=== PATIENT | male | born 2000 | race Caucasian/White ===

== ENCOUNTER 2023-06-22 07:00 | Outpatient (RCR) | payer BC, SELFPAY ==
--- NOTE | 2023-06-03 11:00 | MHC.OT.EP ---
[address] [phone] Occupational Therapy Plan of Care Patient Name: Sivakumar Quiroga Date of Evaluation: 06/03/23 Diagnosis: B/L hand pain Pain Location: Pain free at rest 8/10 sharp pain w/ heavy gripping Pain Score: 8 Pain Scale Used: Numeric (0 - 10) Aggravating Factors: Heavy gripping, tight fist Alleviating Factors: Hot water (showers) Assessment: 22 yo male reports progressing pain in both hands for the past few years. He has family hx of arthritis and Dad (50 years) w/ IP deformities. He was seen by PCP and referred to OT for further assessment and management. On assessment, he reports tightness in IPs and has limited gross grasp B/L'ly, right worse than left. He is also observed to have stage 2 triggering in left index and long fingers and right index finger. He has been educated on use of Oval 8 orthoses to immobilize IPs for trigger fingers and use ice massage and rest. He has also been educated on general joint protection for reducing stress on joint while progressing passive stretching to improve range. I anticipate he will do well w/ course of therapy to improve finger range and minimize/eliminate trigger fingers, with ultimate goal of self management and knowledge of minimizing progression of arthritis and maintaining optimal use of hands. Frequency and Duration: The patient will be seen 2/xwk for 4 weeks Short Term Goals: Ind w/ Oval 8 orthosis wear Ind w/ use of ice massage for trigger fingers Pt to demo good passive digit tip-palm stretch w/ ease Vp Research Goals: Pt to demo active tip-palm grasp B/L hands Pt to report trigger free digits w/ light bimanual tasks Pt to report good follow through w/ joint protection techniques during work tasks Treatment Plan: Therapeutic Exercise Therapeutic Activity Home Exercise Program Splinting Patient Education Edema Control ADL Training Ultrasound Paraffin Fluidotherapy MHP Cold Packs Joint Mobilization Soft Tissue Mobilization Kinesiotaping Electronically Signed By: Alfreda Atkinson OTR/L CHT Please Sign and return to therapist. Thank you once again for your referral.
--- NOTE | 2023-06-22 08:38 | MHC.OT.DC ---
[address] [phone] F: [phone] Occupational Therapy Discharge Note Patient Name: Sivakumar Quiroga Provider: Chase Fields PA-C Diagnosis: B/L hand pain Date of Evaluation: 06/03/23 Date of Discharge: 06/22/23 Treatments to Date: 3 No Shows to Date: 2 Discharge Status: Independent with HEP Recommend MD Follow-up Discharge Summary: Sivakumar was seen for OT with B/L hand pain and stiffness, noted to also have active triggering of several digits. He has had good follow through w/ use of massage and ice for trigger fingers and passive digit stretching to maintain range of hand, but still painful joints w/ decreased digit flexion, and active triggering of multiple digits. He has good understanding of basic self management skills, but symptoms continue to progress and at this time he would likely benefit from Rheumatology assessment and possible field support specialist to address multiple issues. Electronically Signed By: Alfreda Atkinson, OTR/L CHT Please Sign and return to therapist, thank you for your referral.
== END 2023-06-22 08:39 | disposition home or self-care (01) ==
LOC: HO.OT 07:00
PROVIDERS: PCP Physician Assistant; Visit Provider Physician Assistant
DX: M79.641 Pain in right hand (principal); M79.642 Pain in left hand
CPT/HCPCS: 97035; 97110; 97140; 97166

== ENCOUNTER 2023-09-25 16:25 | Emergency (ER) | payer BC, SELFPAY ==
--- NOTE | ~2023-09-25 | XR_ITS ---
EXAMINATION: XR ANKLE, RIGHT CLINICAL INFORMATION: Pain status-post fall. COMPARISON: None available. TECHNIQUE: AP, lateral, and mortise views of the right ankle. FINDINGS: Bony alignment and mineralization are normal. The ankle mortise is intact. No fracture, dislocation or right joint effusion is seen. Boehler's angle is normal. No calcaneal spur is seen. There is mild soft tissue swelling adjacent to the lateral malleolus. XR/XR ankle RT min 3V IMPRESSION: 1. No fracture, dislocation or right ankle joint effusion is seen. 2. There is mild soft tissue swelling adjacent to the right lateral malleolus.
[2023-09-25 16:27] VITALS: BP 138/73; PULSE 72; RESP 16; TEMP 36.8; O2SAT 99; BMI 26.9
--- NOTE | 2023-09-25 16:28 | ED_ITS ---
HPI - Extremity Injury (Lower) General Chief Complaint: Extremity Injury, Lower Stated Complaint: right ankle inj Time Seen by Provider: 09/25/23 16:38 Source: patient Mode of arrival: ambulatory Limitations: no limitations History of Present Illness HPI Narrative: Patient is a 23-year-old male who presents emergency department for evaluation of traumatic right ankle pain, rolled it while playing basketball, 1hr [employer]. Related Data Allergies Allergy/AdvReac Type Severity Reaction Status Date / Time No Known Allergies Allergy Verified 09/25/23 16:28 Review of Systems Review of Systems: Yes all other systems are reviewed and are negative [facility] Past Medical History Attestation statement: The following information was validated with the patient. Source: old records reviewed Physical Exam Vital Signs: Vital Signs: Last Vital Signs Temp 98.3 F 09/25/23 16:27 Pulse 72 09/25/23 16:27 Resp 16 09/25/23 16:27 BP 138/73 09/25/23 16:27 Pulse Ox 99 09/25/23 16:27 O2 Del Method Room Air 09/25/23 16:27 BMI result Body Mass Index 26.9 Appearance: Alert.?Oriented to person, place and time. No acute distress.?Normal affect. Neck: Normal inspection.? Neck supple.?? CVS: Heart sounds normal. Normal heart rate and rhythm.? Pulses normal.?? Respiratory: No respiratory distress.? Lung sounds clear to auscultation bilaterally?? Skin: Skin warm and dry.? Normal skin color.? Extremities: No lower extremity edema.? No calf ttp. TTP lateral malleolus of the right ankle, mild localized swelling. No obvious deformity. 2+ DP/PT pulse bilaterally. Neuro: Moves all extremities spontaneously. Sensation intact bilaterally. Ambulates with antalgic gait. Medical Decision Making Medical Decision Making [facility] Narrative: Patient is a 23-year-old male presenting to the emergency department for evaluation of traumatic right ankle pain as per HPI. Overall well-appearing. Extremities neurovascularly intact distally. No obvious deformity. XR confirms no acute fracture dislocation. Pain at this time most consistent with sprain. Discussed conservative treatment, Aircast applied, instructions provided for appropriate use of crutches. Advised outpatient follow-up with primary care provider. Acetaminophen/ibuprofen for pain management. Reviewed worrisome signs and symptoms that would warrant re-evaluation in an emergency department. All questions answered. Stable for discharge Differential Diagnosis Differential Diagnoses: The differential diagnosis associated with the presentation includes (As noted above) Independent Interpretation I performed an independent interpretation of an: Plain X-Ray (No fracture or dislocation) Radiology Impression Discussion of test interpretation with radiology: I have reviewed the radiologist's reading. Radiologist Impression: XR/XR ankle RT min 3V IMPRESSION: 1. No fracture, dislocation or right ankle joint effusion is seen. 2. There is mild soft tissue swelling adjacent to the right lateral malleolus. Independent Historian Clinical information obtained from an independent historian. History obtained from or confirmed by: Other (Grandfather) Prescription Management I considered prescription management with: Pain Medication (Acetaminophen/ibuprofen) Discharge Plan Discharge Clinical Impression: Ankle sprain Patient Disposition: Home, Self-Care Instructions: Ankle Sprain (ED), R.I.C.E. Treatment (ED), Crutch Instructions (ED) Additional Instructions: Your x-ray today does not show that anything is broken or dislocated. This is very reassuring. You have a sprain of your ankle which can be very painful. Please be aware that some ankle sprains may take up to 6 weeks to fully heal. You can take ibuprofen 200 mg, 3 tablets (600mg) every 6-8 hours as needed for pain, in addition to Tylenol 500 mg, 2 tablets (1,000mg) every 4-6 hours as needed for pain, but not to exceed 3 doses daily (3,000mg).? Use the air cast as provided for comfort while walking. You can put weight on this ankle as tolerated. Use the crutches as needed to take weight off of the ankle. Apply ice to the area for 10-15 minutes 3-4 times daily, elevate the ankle above the level of your chest. Follow-up with your primary care provider as needed. Referrals: Chase Fielsd PA-C [Primary Care Provider] - Print Language: [place] Korean
--- NOTE | 2023-09-25 17:50 | PC.NURSE ---
air cast and crutches given to patient, patient tolerated well.
== END 2023-09-25 17:51 | disposition home or self-care (01) ==
PROVIDERS: Emergency Provider Emergency Medicine; PCP Physician Assistant
DX: S93.401A Sprain of unspecified ligament of right ankle, initial encounter (principal); X50.1XXA Overexertion from prolonged static or awkward postures, initial encounter; Y93.67 Activity, basketball; Y92.9 Unspecified place or not applicable; Y99.9 Unspecified external cause status
CPT/HCPCS: 73610; 99281; 99283

== ENCOUNTER 2023-12-29 13:33 | Outpatient (AMB) | payer BC, SELFPAY ==
[2023-12-29 13:36] VITALS: BP 122/80; BMI 25.1
--- NOTE | 2023-12-29 13:36 | MHC.PC.OV ---
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 [employer] Member Required: No Accompanied by: Self / Same As Patient Allergies No Known Allergies Allergy (Verified 12/29/23 13:44) Medication List - Last Reconciled 12/29/23 by Tish Potter MD No Known Home Meds Tobacco use date assessed: 12/29/23 Dental Screening Dental Screen Date: 12/29/23 Did you have a dental visit in the last 12 months?: Yes Did you have a dental problem in the last 6 months where you did not have access to dental care?: No Was dental information given to patient?: Patient has dentist HPI HPI Comments History of Present Illness Details This is a 23-year-old male comes today complaining of bilateral hand pain that has been present for over 6 months. 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 Try occupational therapy in the past with no significant relief. Will order x-rays. No numbness or weakness. Has family history of arthritis. [facility] Surgical History No pertinent past surgical history Family History Father Arthritis Mother No problems noted. Social History Housing: House Alcohol intake: current Alcohol intake frequency: a few times a month Alcohol type: beer Patient Tobacco Use Status: Never used Tobacco e-Cigarette/Vaping Use: Never Used Second Hand Smoke Exposure: No service: No Current occupational status: employed Current occupational exposures/hazards: No Cognitive needs: No Hearing needs: No Vision needs: No Questionnaire PHQ-9 Over the last 2 weeks, how often have you been bothered by any of the following problems? 1. Little interest or pleasure in doing things: not at all 2. Feeling down, depressed, or hopeless: not at all 3. Trouble falling or staying asleep, or sleeping too much: not at all 4. Feeling tired or having little energy: not at all 5. Poor appetite or overeating: not at all 6. Feeling bad about yourself - or that you are a failure or have let yourself or your family down: not at all 7. Trouble concentrating on things, such as reading the newspaper or watching television: not at all 8. Moving or speaking so slowly that other people could have noticed. Or the opposite - being so fidgety or restless that you have been moving around a lot more than usual: not at all 9. Thoughts that you would be better off or of hurting yourself in some way: not at all Total score: 0 Depression Screening Interpretation: Negative Depression Screening Done: Yes 00098 - PHQ-9 Billing: Yes Source: Developed by Drs. Emeka Chang, Collette Cotto, Fabien Vaca and colleagues, with an educational alvin from [employer]. Thrive Questionnaire Date Thrive assessed: 12/29/23 I am a: Patient What is your living situation today?: I have a steady place to live Within the past 12 months, did the food you bought not last and you didn't have the money to get more?: Never true Within the past 12 months, did you worry whether your food would run out before you got money to buy more?: Never true Do you have trouble paying for medicines?: No Do you have trouble getting transportation to medical appointments?: No Do you have trouble paying your heating and electricity bill?: No Do you have trouble taking care of your child, family member or friend?: No Do you have trouble with day-to-day activities such as bathing, preparing meals, shopping, managing finances, etc.?: No Are you currently unemployed and looking for a job?: No Are you interested in more education?: No Please select the resources that you would like help with: None Currently or been in a relationship where the following occur: No concerns reported THRIVE Score: 0 AUDIT C Alcohol Use Questionnaire (AUDIT-C) 1. How often do you have a drink containing alcohol?: 2-4 times a month 2. How many drinks containing alcohol do you have on a typical day when you are drinking?: 1 or 2 3. How often do you have six or more drinks on one occasion?: Never Total Score: 2 Score Reviewed/Action Taken: No JERMAIN-7 AMB Questionnaire JERMAIN-7 Date JERMAIN - 7 assessed: 07/18/24 Feeling nervous, anxious, or on edge: 0 = Not at all Not being able to stop or control worryin = Not at all Worrying too much about different things: 0 = Not at all Trouble relaxin = Not at all Being so restless that it is hard to sit still: 0 = Not at all Becoming easily annoyed or irritable: 0 = Not at all Feeling afraid as if something awful might happen: 0 = Not at all Total JERMAIN-7 score (0-4 normal; 5-9 mild; 10-14 moderate; 15-21 severe): 0 Source: Developed by Drs. Emeka Chang, Collette Cotto, Fabien Vaca and colleagues, with an educational alvin from [employer]. JERMAIN-7 Assessment Billing JERMAIN-7 Assessment Tool: JERMAIN-7 Assessment 43934 Review of Systems Const All systems reviewed & are unremarkable except as noted in HPI and below Card Denies chest pain at rest, Denies chest pain with activity, Denies edema, Denies irregular heart rhythm, Denies claudication, Denies dyspnea, Denies dyspnea on exertion, Denies orthopnea, Denies paroxysmal nocturnal dyspnea and Denies slow heart rate Resp Denies cough, Denies dyspnea and Denies dyspnea on exertion Musc Denies atrophy, Denies deformity, Reports arthralgias and Denies limited range of motion Physical exam (Primary Care) Vital Signs: Last Vital Signs BP 122/80 12/29/23 13:36 BMI result Body Mass Index 25.1 Tobacco/Smoking Status: Tobacco use Status Tobacco use date assessed 12/29/23 12/29/23 13:45 Patient Tobacco Use Status Never used Tobacco 12/29/23 13:45 e-Cigarette/Vaping Use Never Used 12/29/23 13:45 PHQ-9: PHQ-9 Score PHQ-9: Total score 0 12/29/23 13:45 Depression Screening Interpretation: Negative Thrive Assessment: Date of Thrive Assessment Date Thrive assessed 12/29/23 12/29/23 13:45 Currently or been in a relationship where the following occur: No concerns reported Extrem General: Yes full ROM Right upper extremity: Extremity exam: right hand Details: abnormal to inspection Details: a deformity (unable to extend) Location: of the 3rd digit and of the 4th digit Left upper extremity: hand Details: abnormal to inspection Details: a deformity (unable to extend) Location: of the 3rd digit and of the 4th digit Assessment and Plan Assessment & Plan (1) Right hand pain: Code(s): M79.641 - Pain in right hand Plan: X-ray ordered. (2) Left hand pain: Code(s): M79.642 - Pain in left hand Plan: X-ray ordered. Orders: Orders XR hand LT 2V 12/29/23 M79.642 - Pain in left hand Cyclic Citrullinated Peptide 12/29/23 M79.643 - Pain in unspecified hand Erythrocyte Sedimentation Rate 12/29/23 M79.643 - Pain in unspecified hand CRP High Sensitivity 12/29/23 M79.643 - Pain in unspecified hand Vitamin D 25-OH Total 12/29/23 E55.9 - Vitamin D deficiency, unspecified, M79.643 - Pain in unspecified hand XR hand RT 2V 12/29/23 M79.641 - Pain in right hand Rheumatoid Factor 12/29/23 M79.643 - Pain in unspecified hand Coding Level of Care Code New Pt Level 3 (27933) Complex EM visit Add On G2211 Diagnoses Right hand pain M79.641 Left hand pain M79.642 Additional Codes JERMAIN-7 Assessment Billing - JERMAIN-7 Assessment Tool: JERMAIN-7 Assessment 71575 ([id number]) Time Spent (min) 16
== END 2023-12-29 13:55 | disposition home or self-care (01) ==
PROVIDERS: PCP Physician Assistant; Visit Provider Internal Medicine
DX: M79.641 Pain in right hand (principal); M79.642 Pain in left hand
CPT/HCPCS: 99203